=== PATIENT | male | born 1990 ===

== ENCOUNTER 2022-08-07 10:23 | Emergency (ER) | payer MEDICARE, MEDICAID ==
[~2022-08-07] VITALS: Ht 180 cm; Wt 98.0 kg
[2022-08-07 10:33] VITALS: BP 137/85
[2022-08-07] MEDS ORDERED: OLAN20TA34 (10:43)
[2022-08-07] MEDS ORDERED: PRAZ5CAP2 (10:43)
[2022-08-07] MEDS ORDERED: CYCL10TA25 (10:43)
[2022-08-07] MEDS ORDERED: TRAZ-227 (10:43)
[2022-08-07] MEDS ORDERED: BUSP10TA95 (10:43)
[2022-08-07] MEDS ORDERED: ALBUTEROL (10:43)
--- NOTE | 2022-08-07 10:55 | ED General ---
General Chief Complaint: General Problems/Pain Stated Complaint: BACK/RIGHT LEG PAIN Nursing Triage Note: C/O WORSENED CHRONIC LOWER BACK PAIN, RIGHT THIGH PAIN X3 MONTHS. Source of Information: Patient Exam Limitations: No Limitations History of Present Illness Date Seen by Provider: Aug 07, 2022 Time Seen by Provider: 10:45 Initial Comments 32-year-old male presents stating he has chronic back pain and this is exacerbated. He states back pain for about 3 years. Over the last couple months he has had sharp shooting pains down his right leg as well. No weakness numbness or tingling. He request something for the pain. He denies any new symptoms. His chronic pain he thinks is because he has chronic white points and usage of orthotics. His primary doctor has been "jumping through insurance hoops." He has some more x-rays he has to have done before he can get the results from his report. No loss of bowel or bladder control, saddle ane sthesia. Allergies and Home Medications Allergies Coded Allergies: carbamazepine (Verified Allergy, Unknown, 08/07/22) cefaclor (Verified Allergy, Unknown, 08/07/22) folic acid (Verified Allergy, Unknown, 08/07/22) vitamin B complex and C (Verified Allergy, Unknown, 08/07/22) zinc oxide (Verified Allergy, Unknown, 08/07/22) Patient Home Medication List Home Medication List Reviewed: Yes Buspirone HCl (Buspirone HCl) 10 Mg Tablet, (Reported) Entered as Reported by: MIQUEL STEWART on 08/07/221042 Last Action: New Order Cyclobenzaprine HCl (Cyclobenzaprine HCl) 10 Mg Tablet, (Reported) Entered as Reported by: MIQUEL STEWART on 08/07/221042 Last Action: New Order Olanzapine (Olanzapine) 20 Mg Tablet, (Reported) Entered as Reported by: MIQUEL STEWART on 08/07/221042 Last Action: New Order Prazosin HCl (Prazosin HCl) 5 Mg Capsule, (Reported) Entered as Reported by: MIQUEL STEWART on 08/07/221042 Last Action: New Order Trazodone HCl (Trazodone HCl) 100 Mg Tablet, (Reported) Entered as Reported by: MIQUEL STEWART on 08/07/221042 Last Action: New Order [Albuterol] , (Reported) Entered as Reported by: MIQUEL STEWART on 08/07/22 1043 Last Action: New Order Review of Systems Review of Systems Constitutional: no symptoms reported EENTM: no symptoms reported Respiratory: no symptoms reported Cardiovascular: no symptoms reported Gastrointestinal: no symptoms reported Genitourinary: no symptoms reported Musculoskeletal: back pain, other (Right leg pain) Skin: no symptoms reported Psychiatric/Neurological: No Symptoms Reported Hematologic/Lymphatic: No Symptoms Reported Immunological/Allergic: no symptoms reported Past Sfeitdo-Pvnong-Qftaem Hx Patient Social History Tobacco Use?: Yes Substance use?: No Alcohol Use?: Yes Alcohol Frequency: Once in a while Pt feels they are or have been: No Immunizations Up To Date First/Initial COVID19 Vaccinat: X2 Past Medical History Surgery/Hospitalization HX: ANXIETY, DEPRESSION, SLEEP DIFFICULTIES, GERD Family Medical History Reviewed Nursing Family Hx No Pertinent Family Hx Physical Exam Vital Signs Vital Signs - First Documented 08/07/22 10:33 Temp 36.6 Pulse 103 Resp 16 B/P (MAP) 137/85 (102) Pulse Ox 97 O2 Delivery Room Air Capillary Refill : Less Than 3 Seconds Height, Weight, BMI Height: '" Weight: lbs. oz. kg; 30.00 BMI Method: General Appearance: No Apparent Distress, WD/WN HEENT: Normal ENT Inspection, Pharynx Normal Neck: Full Range of Motion, Normal Inspection, Non Tender, Supple Respiratory: Chest Non Tender, Lungs Clear, Normal Breath Sounds, No Accessory Muscle Use, No Respiratory Distress Cardiovascular: Regular Rate, Rhythm, No Murmur, Normal Peripheral Pulses Gastrointestinal: Normal Bowel Sounds, No Organomegaly, No Pulsatile Mass, Non Tender, Soft Back: Normal Inspection, No CVA Tenderness, Vertebral Tenderness (Tenderness palpation midline lumbar spine. No step-offs or deformity.) Extremity: Normal Capillary Refill, Normal Inspection, Non Tender, No Calf Tenderness, No Pedal Edema, Other (Neurovascular and sensory intact with normal reflexes) Neurologic/Psychiatric: Alert, Oriented x3, No Motor/Sensory Deficits, Normal Mood/Affect Skin: Normal Color, Warm/Dry Lymphatic: No Adenopathy Progress/Results/Core Measures Suspected Sepsis SIRS Temperature: Pulse: 103 Respiratory Rate: 16 Blood Pressure 137 /85 Mean: 102 Results/Orders Vital Signs/I&O 08/07/22 10:33 Temp 36.6 Pulse 103 Resp 16 B/P (MAP) 137/85 (102) Pulse Ox 97 O2 Delivery Room Air Capillary Refill : Less Than 3 Seconds Blood Pressure Mean: 102 Departure Communication (Admissions) Patient is hemodynamically stable no red flag symptoms. Symptoms are chronic. I advised him that I do not treat chronic pain in the emergency department. I did give him sciatic nerve exercises and some stretching strategies. I advised he get the orthotics as recommended by his primary doctor. Use ibuprofen and Tylenol for pain. Discharged in stable condition Impression Primary Impression: Chronic back pain Qualified Codes: M54.41 - Lumbago with sciatica, right side; G89.29 - Other chronic pain Disposition: HOME, SELF-CARE Condition: Stable Departure-Patient Inst. Referrals: NO,LOCAL PHYSICIAN (PCP/Family) Primary Care Physician Patient Instructions: Sciatica (DC), Sciatica Exercises Add. Discharge Instructions: Perform the exercises as shown in the discharge packet. Use ibuprofen and Tylenol for pain. Return to the emergency department for any severe concerns. All discharge instructions reviewed with patient and/or family. Voiced understanding. MYCHAL HWANG DO Aug 07, 2022 10:54
== END 2022-08-07 10:56 | disposition home or self-care (01) ==
LOC: ER 10:28
DX: M54.50 Low back pain, unspecified (principal); G89.29 Other chronic pain
CPT/HCPCS: 99281